=== PATIENT | female | born 1970 | race Caucasian/White ===

== ENCOUNTER 2017-04-28 08:05 | Emergency (ER) | payer MEDICAID ==
[~2017-04-28] VITALS: Ht 162.6 cm; Wt 90.0 kg
[2017-04-28 08:07] VITALS: Ht 162.6 cm; Wt 90.0 kg
[2017-04-28] MEDS ORDERED: KETOROLAC 30 MG INJ IM STA (08:30)
[2017-04-28] MEDS ORDERED: HYDROCODONE/APAP (5/325) TAB PO ONE (08:30)
--- NOTE | 2017-04-28 08:45 | ERD ---
ER Documentation Chief Complaint Date/Time DATE: 04/28/17 TIME: 08:42 Chief Complaint lower back pain, non traumatic ,onset yesterday HPI 46-year-old female comes in via rescue to the emergency department with diffuse lower back pain that started yesterday while she was in the bathroom. She states that she was on the toilet and then she got up and twisted and complains of acute pain that is diffuse on the low back. She states that ibuprofen did help some of her pain. She reports that it is sharp, achy, starts in the center of her low back and radiates laterally. She denies any saddle anesthesia loss of bowel bladder function. ROS All systems reviewed and are negative except as per history of present illness. Medications Home Meds Active Scripts Ibuprofen* (Motrin*) 600 Mg Tab, 600 MG PO Q6, #30 TAB Prov:DYLAN MAHAN PA-C 04/28/17 Hydrocodone/Acetaminophen ([place] 5-325 Tablet) 1 Each Tablet, 1 TAB PO Q6H Y for PAIN, #7 TAB Prov:DYLAN MAHAN PA-C 04/28/17 Allergies Allergies: Coded Allergies: No Known Allergy (Unverified , 11/19/12) PMhx/Soc Medical and Surgical Hx: pt denies Medical Hx, pt denies Surgical Hx History of Surgery: No Anesthesia Reaction: No Hx Neurological Disorder: No Hx Respiratory Disorders: No Hx Cardiac Disorders: No Hx Psychiatric Problems: No Hx Miscellaneous Medical Probl: No Hx Alcohol Use: Yes Hx Substance Use: No Hx Tobacco Use: Yes Smoking Status: Current every day smoker Physical Exam Vitals Vital Signs Date Time Temp Pulse Resp B/P Pulse Ox O2 Delivery O2 Flow Rate FiO2 04/28/17 08:07 98.1 89 20 130/78 99 Physical Exam General: Well-developed, well-nourished. The patient appears in no acute distress. HEENT: Head is normocephalic, atraumatic. No scleral icterus. Neck: Supple. Nontender. Lungs: Clear to auscultation. Normal air movement. Heart: Regular rate and rhythm. S1 and S2 are normal. No murmurs, gallops, or rubs. Abdomen: Soft, nontender, nondistended. Bowel sounds are normoactive. Back: Diffuse lumbar tenderness paraspinal region at L4-L5. There is no rash. She is able to flex and dorsiflex bilateral ankles, strength lower extremities 5 out of 5 bilaterally. Extremities: No clubbing or cyanosis. Normal pulses. Moving extremities x 4. No weakness. Neurologic: Alert and oriented 3. No focal deficits. Skin: Normal turgor. No rash or lesions. Results 24 hrs Current Medications Medications (Trade) Dose Ordered Sig/Marcelo Route PRN Reason Start Time Stop Time Status Last Admin Dose Admin Ketorolac Tromethamine (Toradol) 30 mg ONCE STAT IM 04/28/17 08:30 04/28/17 08:32 DC 04/28/17 09:04 Acetaminophen/ Hydrocodone Bitart ([place] (5/325)) 1 tab ONCE ONCE PO 04/28/17 08:30 04/28/17 08:32 DC 04/28/17 08:43 Procedures/MDM ED course: She was given Toradol 30 mg IM, [place] 5/325 mg by mouth. She states that she is feeling much better at this time she was ambulatory, and feels comfortable being discharged home at this time Medical decision making: This is a 46-year-old female comes in with acute low back pain after getting up from the bathroom and she reports that she was twisting. She has diffuse paraspinal tenderness at L4-5 consistent with a strain, and muscle spasm. She does not show any signs of cauda equina, compression syndrome or any neurologic injury. She was given Toradol as well as [place] in the emergency room and rates her pain is mild to moderate at this time and will be discharged. Patient's blood pressure was elevated (>120/80) but appears stable without evidence of hypertension emergency or urgency. The patient was counseled about the risks of hypertension and urged to pursue outpatient monitoring and therapy within a week with their primary care physician. Departure Diagnosis: Primary Impression: Back pain Condition: DYLAN Sykes PA-C Apr 28, 2017 08:44
[2017-04-28] MEDS ORDERED: HYDR-906 PO (09:49)
[2017-04-28] MEDS ORDERED: IBUP-1542 PO (09:49)
== END 2017-04-28 09:54 | disposition home or self-care (01) ==
LOC: FTE 08:05
DX: M54.5 Low back pain (principal); F17.210 Nicotine dependence, cigarettes, uncomplicated
CPT/HCPCS: 96372; J1885; Z7502; Z7610

== ENCOUNTER 2017-10-09 15:53 | Emergency (ER) | payer MEDICAID ==
[~2017-10-09] VITALS: Ht 167.6 cm; Wt 87.5 kg
[~2017-10-09 15:53] MED LIST: HYDR-906 PO; IBUP-1542 PO
[2017-10-09 15:57] VITALS: Ht 167.6 cm; Wt 87.5 kg
[2017-10-09] MEDS ORDERED: KETOROLAC 60 MG INJ IM STA (16:16)
[2017-10-09] MEDS ORDERED: HYDROCODONE/APAP (5/325) TAB PO ONE (16:30)
--- NOTE | 2017-10-09 17:16 | RADRPT ---
PROCEDURE: XR Chest. CLINICAL INDICATION: Chest pain TECHNIQUE: Single portable view of the chest was obtained. COMPARISON: None. FINDINGS: Cardiac/vascular structures: Normal cardiomediastinal silhouette. Pulmonary: Lungs are clear. No pleural effusion. No evidence of pneumothorax. Osseous structures: Normal Soft tissues: Normal IMPRESSION: No acute cardiopulmonary disease. RPTAT:AAJJ Physician Vi Date Time Electronically viewed and signed by Roel Mendez Physician on 10/09/2017 17:16 /
[2017-10-09] MEDS ORDERED: IBUP-1542 PO (17:41)
[2017-10-09] MEDS ORDERED: HYDR-906 PO (17:41)
--- NOTE | 2017-10-09 17:45 | ERD ---
ER Documentation Chief Complaint Chief Complaint cough , sob , lt side lower back pain x 2 days , denies chest pain HPI This 47-year-old female complains of pain in the left chest wall for the last 2 days. Started while sleeping. She is wondering if her dog possibly jumped on her. She denies any known trauma. She denies any fevers, hemoptysis, recent URIs. Denies any urinary complaints. She has any calf swelling or shortness of breath. The pain is pleuritic in the left T10 area laterally. ROS All systems reviewed and are negative except as per history of present illness. Medications Home Meds Active Scripts Hydrocodone/Acetaminophen ([place] 5-325 Tablet) 1 Each Tablet, 1 TAB PO Q6H Y for PAIN, #10 TAB Prov:MELVIN TRUONG MD 10/09/17 Ibuprofen* (Motrin*) 600 Mg Tab, 600 MG PO Q6, #20 TAB Prov:MELVIN TRUONG MD 10/09/17 Ibuprofen* (Motrin*) 600 Mg Tab, 600 MG PO Q6, #30 TAB Prov:DYLAN MAHAN PA-C 04/28/17 Hydrocodone/Acetaminophen ([place] 5-325 Tablet) 1 Each Tablet, 1 TAB PO Q6H Y for PAIN, #7 TAB Prov:DYLAN MAHAN PA-C 04/28/17 Allergies Allergies: Coded Allergies: No Known Allergy (Unverified , 10/09/17) PMhx/Soc Medical and Surgical Hx: pt denies Medical Hx, pt denies Surgical Hx History of Surgery: No Anesthesia Reaction: No Hx Neurological Disorder: No Hx Respiratory Disorders: No Hx Cardiac Disorders: No Hx Psychiatric Problems: No Hx Miscellaneous Medical Probl: No Hx Alcohol Use: Yes (social) Hx Substance Use: No Hx Tobacco Use: Yes Smoking Status: Current every day smoker Physical Exam Vitals Vital Signs Date Time Temp Pulse Resp B/P Pulse Ox O2 Delivery O2 Flow Rate FiO2 10/09/17 15:57 98.0 97 18 145/90 98 Physical Exam Const: [] Alert, [id number]. Head: Atraumatic Eyes: Normal Conjunctiva ENT: Normal External Ears, Nose and Mouth. Neck: Full range of motion..~ No meningismus. Resp: Clear to auscultation bilaterally tenderness in the left T10 area laterally. No crepitance or deformities. Cardio: Regular rate and rhythm, no murmurs Abd: Soft, non tender, non distended. Normal bowel sounds Skin: No petechiae or rashes Back: No midline or flank tenderness Ext: No cyanosis, or edema. No calf swelling or Homans sign. Neur: Awake and alert Psych: Normal Mood and Affect Results 24 hrs Current Medications Medications (Trade) Dose Ordered Sig/Marcelo Route PRN Reason Start Time Stop Time Status Last Admin Dose Admin Ketorolac Tromethamine (Toradol) 60 mg ONCE STAT IM 10/09/17 16:16 10/09/17 16:18 DC 10/09/17 16:35 Acetaminophen/ Hydrocodone Bitart ([place] (5/325)) 1 tab ONCE ONCE PO 10/09/17 16:30 10/09/17 16:31 DC 10/09/17 16:35 Procedures/MDM Presents with reproducible left chest wall tenderness. Chest X-ray 1V Interpreted by me: Soft Tissue: No acute abnormalities Bones: No acute abnormalities Mediastinum/Cardiac Silhouette/Lungs: [No acute abnormalities] impression- normal 1 view chest x-ray She was given Toradol 60 mg IM and [place] 5 mg by mouth. Patient currently has no signs or symptoms risk factors to suggest pulmonary embolism no evidence of pneumonia, no flank tenderness to suggest genitourinary etiology. She likely is most skeletal chest wall strain or pleurisy. She will be treated with short course of [place], ibuprofen, return precautions. Patient should return for fevers, shortness breath, worsening pain, new or worsening symptoms or primary care doctor this week. The patient was stable with no new complaints during the ER course. Clinically, there is no current evidence to suggest meningitis, sepsis, acute abdomen, pneumonia, acute coronary syndrome, pulmonary embolism, or any other emergent condition appearing to require further evaluation or hospitalization. The patient should certainly return for any new or worsening symptoms per the aftercare instructions. They should otherwise follow-up with her primary care doctor for reevaluation this week. Departure Diagnosis: Primary Impression: Chest wall pain Condition: Stable Patient Instructions: Chest Wall Strain Additional Instructions: X-ray normal. Likely musculoskeletal pain. Recheck for blood, fevers, shortness breath, new or worsening symptoms with primary care doctor this week. MELVIN TRUONG MD Oct 09, 2017 17:45
== END 2017-10-09 18:01 | disposition home or self-care (01) ==
LOC: FTE 15:53
DX: R07.89 Other chest pain (principal); F17.210 Nicotine dependence, cigarettes, uncomplicated
CPT/HCPCS: 71010; 96372; J1885; Z7502; Z7610